=== PATIENT | male | born 1990 | race Caucasian/White ===

== ENCOUNTER 2017-06-22 12:14 | Emergency (ER) | payer SELFPAY ==
[2017-06-22 12:20] VITALS: RESP 18
[2017-06-22] MEDS ORDERED: Bacitracin 500 Units/gm Oint Foilpak UD ONE (12:25)
--- NOTE | 2017-06-22 12:34 | C.PDOC ---
History Of Present Illness 27 year old male presents to the ED for evaluation after having a breakthrough seizure prior to arrival. Patient states he was walking when the seizure occurred, causing him to fall forward and sustain injuries to his face and bilateral hands. Patient states he did not get much sleep last night, which may have triggered the episode. Notes this has happened in the past. Patient states he has been compliant with his Depakote and took his last routine dose last night. Patient is currently asymptomatic and denies nausea, vomiting, urinary/ bowel incontinence. Time Seen by Provider: 06/22/17 12:29 Chief Complaint (Nursing): Seizure History Per: Patient History/Exam Limitations: no limitations Recent Seizure Activity Began: Just Before Arrival Number Of Seizures: One Length Of Seizures (Duration): Unknown Precipitating Factor(s): Decreased Sleep Additional History Per: Patient Past Medical History Reviewed: Historical Data, Nursing Documentation, Vital Signs Vital Signs: Last Vital Signs Temp 98.0 F 06/22/17 12:44 Pulse 88 06/22/17 12:44 Resp 18 06/22/17 12:44 BP 128/68 06/22/17 12:44 Pulse Ox 99 06/22/17 12:59 - Medical History PMH: Seizures Denies: Chronic Kidney Disease Surgical History: Appendectomy Family History: States: Unknown Family Hx - Social History Hx Alcohol Use: Yes Hx Substance Use: No Review Of Systems Gastrointestinal: Negative for: Nausea, Vomiting Genitourinary: Negative for: Incontinence Skin: Positive for: Other (facial and bilateral hand injuries ) Neurological: Positive for: Seizures Physical Exam - Physical Exam Appears: Non-toxic, No Acute Distress Skin: Normal Color, Warm, Dry, Other (abrasions to bilateral knuckles ) Head: Abrasion (facial regions ), Other (good jaw alignment ) Eye(s): bilateral: Normal Inspection Oral Mucosa: Moist Teeth: Normal Dentition, No Tender To Palpation, No Loose Chest: Symmetrical, No Deformity, No Tenderness Cardiovascular: Rhythm Regular, No Murmur Respiratory: Normal Breath Sounds, No Rales, No Rhonchi, No Wheezing Extremity: Normal ROM, Capillary Refill (less than 2 seconds ), No Deformity, No Swelling Neurological/Psych: Oriented x3, Normal Speech, Normal Cognition Gait: Steady ED Course And Treatment O2 Sat by Pulse Oximetry: 99 (on RA ) Pulse Ox Interpretation: Normal Progress Note: Patient states his last tetanus immunization was 1 year ago. Patient states he is currently asymptomatic, would like no further medical intervention at this time and asks to be discharged. Disposition Counseled Patient/Family Regarding: Diagnosis, Need For Followup - Disposition Referrals: YOUR,PMD [Other] Disposition: HOME/ ROUTINE Disposition Time: 12:34 Condition: IMPROVED Instructions: Abrasion (ED), Recurrent Seizures in Adults (ED) Forms: [facility] ([place]), Work Excuse - Clinical Impression Clinical Impression: Breakthrough seizure, Multiple abrasions - Scribe Statement The provider has reviewed the documentation as recorded by the Scribe (Evelyn Ulloa) Provider Attestation: All medical record entries made by the Scribe were at my direction and personally dictated by me. I have reviewed the chart and agree that the record accurately reflects my personal performance of the history, physical exam, medical decision making, and the department course for this patient. I have also personally directed, reviewed, and agree with the discharge instructions and disposition.
[2017-06-22 12:46] VITALS: BP 128/68; PULSE 88; TEMP 98
[2017-06-22 12:52] VITALS: O2SAT 99
== END 2017-06-22 13:11 | disposition home or self-care (01) ==
LOC: C.ER 12:14
DX: G40.909 Epilepsy, unspecified, not intractable, without status epilepticus (principal); S00.81XA Abrasion of other part of head, initial encounter; S60.511A Abrasion of right hand, initial encounter; W18.30XA Fall on same level, unspecified, initial encounter